=== PATIENT | male | born 1950 | race Asian ===

== ENCOUNTER 2016-11-25 18:14 | Inpatient (IN) | payer MEDICARE, OTHER ==
[~2016-11-25] VITALS: Ht 157.5 cm; Wt 58.2 kg
[~2016-11-25 18:14] MED LIST: NAPR-260 PO; TRAM50TA2 PO
[2016-11-25] MEDS ORDERED: ASPIRIN 81 MG TAB PO STA (21:08)
[2016-11-25] MEDS ORDERED: FUROSEMIDE 40 MG INJ IV STA (21:08)
[2016-11-25] MEDS ORDERED: METO-429 PO (21:43)
[2016-11-25] MEDS ORDERED: SODI650T PO (21:46)
[2016-11-25] MEDS ORDERED: TERA2CAP3 PO (21:47)
[2016-11-25] MEDS ORDERED: CLON-379 PO (21:47)
[2016-11-25] MEDS ORDERED: ATOR20TA38 PO (21:48)
[2016-11-25] MEDS ORDERED: NIFE60TA7 PO (21:48)
[2016-11-25] MEDS ORDERED: FOLI-49 PO (21:49)
--- NOTE | 2016-11-25 21:58 | RADRPT ---
PROCEDURE: XR Chest. CLINICAL INDICATION: Chest pain TECHNIQUE: Single frontal view of the chest was obtained COMPARISON: None FINDINGS: The heart is enlarged. The thoracic aorta is calcified. There is no pneumothorax. There is a right lower lobe infiltrate and right pleural effusion. There is a small left pleural eff usion. RPTAT: AA IMPRESSION: Mild cardiomegaly. Calcified aorta consistent with atherosclerotic disease. Right lower lobe infiltrate and small to moderate right pleural effusion. Small left pleural effusion with left lower lobe atelectasis. .David George MD, MD Date Time Electronically viewed and signed by .David George MD, on 11/25/2016 21:58 .S/
[2016-11-25] MEDS ORDERED: ACETAMINOPHEN 325 MG TAB PO PRN (22:00)
[2016-11-25] MEDS ORDERED: ONDANSETRON 4 MG INJ IV PRN (22:00)
[2016-11-25 22:12] LABS: WHITE BLOOD COUNT 5.2 10^3/ul (4.8-10.8)
[2016-11-25 22:13] LABS: BASOPHILS % 0.4 % (0.0-2.0); EOSINOPHILS # 0.6 10^3/ul (0.0-0.5); EOSINOPHILS % 11.3 % (0.0-7.0); HEMATOCRIT 23.8 % (42.0-52.0); HEMOGLOBIN 7.8 g/dl (14.0-18.0); LYMPHOCYTES % 18.8 % (15.0-51.0); MEAN CORPUSCULAR HEMOGLOBIN 31.5 pg (29.0-33.0); MEAN CORPUSCULAR HGB CONC 32.8 g/dl (32.0-37.0); MEAN PLATELET VOLUME 11.5 fl (7.4-10.4); MONOCYTE # 0.4 10^3/ul (0.3-0.9); NEUTROPHIL # 3.2 10^3/ul (1.6-7.5); NEUTROPHILS % 61.3 % (39.0-77.0); PLATELET COUNT 239 10^3/UL (140-415); RED BLOOD COUNT 2.48 10^6/ul (4.70-6.10); RED CELL DISTRIBUTION WIDTH 13.2 % (11.5-14.5)
[2016-11-25 22:45] LABS: TROPONIN-I < 0.012 ng/ml (0.00-0.12)
[2016-11-25 23:00] VITALS: TEMP 98
[2016-11-25 23:25] LABS: ANION GAP 14 (8-16); BLOOD UREA NITROGEN 60 mg/dl (7-20); CALCIUM 8.1 mg/dl (8.4-10.2); CARBON DIOXIDE 17 mmol/L (21-31); CHLORIDE 118 mmol/L (97-110); CREATININE 4.84 mg/dl (0.61-1.24); GLUCOSE 117 mg/dl (70-220); POTASSIUM 5.6 mmol/L (3.5-5.1); SODIUM 143 mmol/L (135-144)
--- NOTE | 2016-11-25 23:33 | ERA ---
ER Documentation Chief Complaint Date/Time DATE: 11/25/16 TIME: 23:30 Chief Complaint bilateral leg swelling x 1 month and bilateral testicle x 1 week HPI Patient is a 66-year-old male who presents with shortness of breath. The patient has bilateral leg swelling as well. The swelling goes all the way up to his testicles and he feels like his testicles are swollen as well. He does have a primary doctor at [facility]. He has had no treatment as of yet. Upon review of old medical records the patient one previous visit to the ER. ROS All systems reviewed and are negative except as per history of present illness. Medications Home Meds Reported Medications Folic Acid* (Folic Acid*) 1 Mg Tablet, 1 MG PO DAILY, TAB 11/25/16 Nifedipine* (Nifedipine ER*) 60 Mg Tablet.sa, 60 MG PO BID, TAB.SA 11/25/16 Atorvastatin Calcium* (Atorvastatin Calcium*) 20 Mg Tablet, 20 MG PO QHS, #30 TAB 11/25/16 Terazosin Hcl* (Terazosin Hcl*) 2 Mg Capsule, 2 MG PO HS, CAP 11/25/16 Clonidine Hcl* (Clonidine Hcl*) 0.1 Mg Tab, 0.1 MG PO BID Y for HTN, TAB 11/25/16 Sodium Bicarbonate (Antacid) 650 Mg Tablet, 325 MG PO BID, TAB 11/25/16 Metoprolol Tartrate* (Lopressor*) 50 Mg Tab, 50 MG PO BID, #60 TAB 11/25/16 Discontinued Scripts Tramadol HCl (Tramadol HCl) 50 Mg Tablet, 50 MG PO Q4 Y for PAIN, #15 TAB Prov:SEVERO STEWART PA-C 02/12/16 Naproxen* (Naprosyn*) 500 Mg Tablet, 500 MG PO BID Y for PAIN AND/OR INFLAMMATION, #30 TAB Prov:SEVERO STEWART PA-C 02/12/16 Allergies Allergies: Coded Allergies: No Known Allergy (Unverified , 11/25/16) PMhx/Soc History of Surgery: Yes (R Eye Cataract Surg) Anesthesia Reaction: No Hx Neurological Disorder: Yes (CVA) Hx Respiratory Disorders: No Hx Cardiac Disorders: Yes (HTN) Hx Psychiatric Problems: No Hx Miscellaneous Medical Probl: Yes (DDM,Dyslipidemia) Hx Alcohol Use: Yes (Social) Hx Substance Use: No Hx Tobacco Use: No Smoking Status: Never smoker FmHx Family History: No diabetes Physical Exam Vitals Vital Signs Date Time Temp Pulse Resp B/P Pulse Ox O2 Delivery O2 Flow Rate FiO2 11/25/16 23:00 98.0 59 12 143/59 98 Room Air 11/25/16 18:18 98.7 62 18 154/70 97 Physical Exam Const: Moderate distress Head: Atraumatic Eyes: Normal Conjunctiva ENT: Normal External Ears, Nose and Mouth. Neck: Full range of motion..~ No meningismus. Resp: Clear to auscultation bilaterally Cardio: Regular rate and rhythm, no murmurs Abd: Soft, non tender, non distended. Normal bowel sounds Skin: No petechiae or rashes Back: No midline or flank tenderness Ext: 4+ pitting edema bilaterally with scrotal swelling consistent with anasarca Neur: Awake and alert Psych: Normal Mood and Affect Result Diagram: 11/25/160 11/25/165 Results 24 hrs Laboratory Tests Test 11/25/16 22:00 11/25/16 22:35 White Blood Count 5.210^3/ul Red Blood Count 2.4810^6/ul Hemoglobin 7.8g/dl Hematocrit 23.8% Mean Corpuscular Volume 96.0fl Mean Corpuscular Hemoglobin 31.5pg Mean Corpuscular Hemoglobin Concent 32.8g/dl Red Cell Distribution Width 13.2% Platelet Count 73956^3/UL Mean Platelet Volume 11.5fl Neutrophils % 61.3% Lymphocytes % 18.8% Monocytes % 8.0% Eosinophils % 11.3% Basophils % 0.4% Nucleated Red Blood Cells % 0.0/100WBC Neutrophils # 3.210^3/ul Lymphocytes # 1.010^3/ul Monocytes # 0.410^3/ul Eosinophils # 0.610^3/ul Basophils # 0.010^3/ul Nucleated Red Blood Cells # 0.010^3/ul Sodium Level 143mmol/L Potassium Level 5.6mmol/L Chloride Level 118mmol/L Carbon Dioxide Level 17mmol/L Anion Gap 14 Blood Urea Nitrogen 60mg/dl Creatinine 4.84mg/dl Glucose Level 117mg/dl Calcium Level 8.1mg/dl Troponin I < 0.012ng/ml Current Medications Medications (Trade) Dose Ordered Sig/Yuniel Route PRN Reason Start Time Stop Time Status Last Admin Dose Admin Aspirin (Aspirin) 162 mg ONCE STAT PO 11/25/16 21:08 11/25/16 21:09 DC 11/25/16 22:09 Furosemide (Lasix) 40 mg ONCE STAT IV 11/25/16 21:08 11/25/16 21:09 DC 11/25/16 22:09 Ondansetron HCl (Zofran Inj) 4 mg ER BRIDGE PRN IV NAUSEA AND/OR VOMITING 11/25/16 22:00 11/26/16 21:59 Acetaminophen (Tylenol Tab) 650 mg ER BRIDGE PRN PO MILD PAIN/FEVER 11/25/16 22:00 11/26/16 21:59 Procedures/MDM Chest X-ray 1V Interpreted by me: Soft Tissue: No acute abnormalities Bones: No acute abnormalities Mediastinum/Cardiac Silhouette/Lungs: Pulmonary edema EKG read by me: Rate/Rhythm: Regular rate and rhythm at a normal rate Intervals: Normal Impression: No evidence of ischemia or arrhythmia Patient is a 66-year-old male presents with acute fluid overload. He was found to have acute renal failure as well and acute hyperkalemia. I believe the patient has acute CHF and the patient was given aspirin and Lasix. The patient will be admitted to the care of Dr. Shahid from the panel team for further treatment. He will be admitted to a telemetry bed. He may require dialysis while admitted if his creatinine does not improve and his potassium continues to rise. EKG shows no sign of hyperkalemia at this time. Critical Care: Time: 35 minutes excluding all billable procedures. Treatments/Evaluations: Close monitoring and treatment of unstable vital signs, cardiorespiratory, and neurologic status, while maintaining tight balance of fluid, respiratory, and cardiac interventions. Departure Diagnosis: Primary Impression: Hyperkalemia Additional Impressions: Swelling Anasarca Acute renal failure Acute CHF Condition: TORIBIO Etienne MD Nov 25, 2016 23:33
[2016-11-25 23:41] VITALS: PULSE 57
[2016-11-26] VITALS (23 sets, daily range): BP systolic 120–231; BP diastolic 50–93; PULSE 54–74; RESP 16–20; Ht 157.5 cm; Wt 58.2 kg
[2016-11-26] MEDS ORDERED: GLUCOSE GEL 15 GRAM TUBE BUCCAL PRN (00:30)
[2016-11-26] MEDS ORDERED: GLUCAGON 1 MG INJ IM PRN (00:30)
[2016-11-26] MEDS ORDERED: ACETAMINOPHEN 325 MG TAB PO PRN (00:30)
[2016-11-26] MEDS ORDERED: ONDANSETRON 4 MG INJ IV PRN (00:30)
[2016-11-26] MEDS ORDERED: DEXTROSE 50% 50 ML SYRINGE IV PRN ×2 (00:30)
[2016-11-26] MEDS ORDERED: GLUCOSE GEL 15 GRAM TUBE PO PRN ×2 (00:30)
[2016-11-26] MEDS: SOD CHLORIDE 0.9% 1,000 ML IV SCH ×2 (00:56→10:30)
[2016-11-26] MEDS ORDERED: NA POLYST SULFON 15 GM/60 ML BTL PO ONE (01:00)
[2016-11-26] MEDS: ACCU-CHEK XX SCH (01:58)
[2016-11-26 03:45] LABS: BASOPHILS % 0.5 % (0.0-2.0); EOSINOPHILS # 0.7 10^3/ul (0.0-0.5); EOSINOPHILS % 12.9 % (0.0-7.0); HEMOGLOBIN 8.1 g/dl (14.0-18.0); LYMPHOCYTES # 1.3 10^3/ul (0.8-2.9); LYMPHOCYTES % 23.8 % (15.0-51.0); MEAN CORPUSCULAR HEMOGLOBIN 31.3 pg (29.0-33.0); MEAN CORPUSCULAR HGB CONC 32.4 g/dl (32.0-37.0); MEAN CORPUSCULAR VOLUME 96.5 fl (82.0-101.0); MEAN PLATELET VOLUME 11.4 fl (7.4-10.4); MONOCYTE # 0.5 10^3/ul (0.3-0.9); MONOCYTES % 8.4 % (0.0-11.0); NEUTROPHILS % 54.2 % (39.0-77.0); PLATELET COUNT 249 10^3/UL (140-415); RED BLOOD COUNT 2.59 10^6/ul (4.70-6.10); RED CELL DISTRIBUTION WIDTH 13.2 % (11.5-14.5); WHITE BLOOD COUNT 5.6 10^3/ul (4.8-10.8)
[2016-11-26 04:06] LABS: CREATINE KINASE 124 IU/L (23-200)
[2016-11-26 04:08] LABS: ALBUMIN 3.9 g/dl (3.3-4.9); ALBUMIN/GLOBULIN RATIO 0.95; BILIRUBIN,INDIRECT 0.2 mg/dl (0-1.1); BILIRUBIN,TOTAL 0.2 mg/dl (0.2-1.3); CALCIUM 8.6 mg/dl (8.4-10.2); CREATININE 4.93 mg/dl (0.61-1.24); MAGNESIUM 2.5 mg/dl (1.7-2.5); PHOSPHORUS 5.1 mg/dl (2.5-4.9); POTASSIUM 5.1 mmol/L (3.5-5.1)
[2016-11-26 04:52] LABS: CK-MB 2.08 ng/ml (0.0-2.4); TROPONIN-I < 0.012 ng/ml (0.00-0.12)
[2016-11-26] MEDS: hydrALAzine 20 MG INJ IV PRN ×3 (05:43→18:31)
[2016-11-26] MEDS: ALBUMIN HUMAN 25% 100 ML IVPB SCH ×2 (06:41→14:19)
[2016-11-26] MEDS: INSULIN ASPART [NOVOLOG] 3 ML PEN SC SCH ×4 (08:00→20:46)
[2016-11-26] MEDS: NIFEdipine (XL) 60 MG TAB PO SCH ×2 (09:13→20:36)
[2016-11-26] MEDS: METOPROLOL 50 MG TAB PO SCH ×2 (09:13→20:37)
[2016-11-26] MEDS ORDERED: LABETALOL HCL 20MG INJ IV ONE (09:30)
[2016-11-26] MEDS: ASPIRIN (EC) 81 MG TAB PO SCH (09:43)
[2016-11-26] MEDS: NA BICARBONATE 650 MG TAB PO SCH ×2 (09:43→20:36)
[2016-11-26] MEDS: FOLIC ACID 1 MG TAB PO SCH (09:43)
--- NOTE | 2016-11-26 09:44 | HP ---
Date/Time of Note Date/Time of Note DATE: 11/26/16 TIME: 09:38 Assessment/Plan VTE Prophylaxis VTE Prophylaxis Intervention: heparin Lines/Catheters IV C[facility] Type [facility]from [facility] Peripheral IV Urinary Cath still in place: Yes Assessment/Plan Assessment/Plan ASSESSMENT 66-year-old male with a history of CVA, hypertension, diabetes presents with anasarca secondary to renal insufficiency PLAN Patient presented to his secondary to renal failure. Will obtain renal ultrasound and a urine electrolytes. Nephrology consult has already been placed Place a Rosario Order a 2D echo will give albumin Continue terazosin Monitor urine output Check A1c, fasting lipid Insulin while in house for management of diabetes HPI/ROS Admit Date/Time Admit Date/Time Nov 25, 2016 at 22:01 Hx of Present Illness This is a 66-year-old male with a history of CVA, hypertension, diabetes and BPH who presented to the emergency department complaining of shortness of breath and progressively worsening bilateral lower extremity swelling in the testicular swelling. Symptoms been going on for a few weeks and have been getting worse. He also reported decreased urine output. When he presented to the ER his potassium was 5.6, creatinine 4.8, BUN 60, hemoglobin 7.8. Chest x-ray showed pleural effusion and right-sided infiltrate. PMH/Family/Social Social History Smoking Status: Former smoker Exam/Review of Systems Vital Signs Vitals Vital Signs Date Time Temp Pulse Resp B/P Pulse Ox O2 Delivery O2 Flow Rate FiO2 11/26/16 08:10 64 11/26/16 07:51 98.1 20 182/66 98 11/26/16 01:05 Room Air Intake and Output 11/25/16 11/25/16 11/26/16 15:00 23:00 07:00 Intake Total 580 ml Output Total 750 ml Balance -170 ml Exam Constitutional: alert Head: atraumatic, normocephalic Eyes: EOMI, PERRL Respiratory: diminished breath sounds Cardiovascular: regular rate and rhythm Gastrointestinal: soft Extremities: edema Labs Result Diagram: 11/26/1631611/26/16316 Medications Medications Current Medications Sodium Chloride (NS) 1,000 ml @ 100 mls/hr Q10H IV Last administered on t 00:56; Admin Dose 100 MLS/HR; Start 11/26/16 at 00:30 Ondansetron HCl (Zofran Inj) 4 mg Q6H PRN IV NAUSEA AND/OR VOMITING; Start at 00:30 Acetaminophen (Tylenol Tab) 650 mg Q4H PRN PO PAIN AND OR ELEVATED TEMP; Start 11/26/16 at 00:30 Hydralazine HCl (Apresoline) 10 mg Q6H PRN IV systolic BP >160 Last administered on 11/26/16 05:43; Admin Dose 10 MG; Start 11/26/16 at 00:30 Diagnostic Test (Pha) (Accu-Chek) 1 ea 02 XX ; Start 11/26/16 at 02:00 Miscellaneous Information 1 ea NOTE XX ; Start 11/26/16 at 00:30 Glucose (Glutose) 15 gm Q15M PRN PO DECREASED GLUCOSE; Start 11/26/16 at 00:30 Glucose (Glutose) 22.5 gm Q15M PRN PO DECREASED GLUCOSE; Start 11/26/16 at 00: 30 Dextrose (D50w Syringe) 25 ml Q15M PRN IV DECREASED GLUCOSE; Start 11/26/16 at 00:30 Dextrose (D50w Syringe) 50 ml Q15M PRN IV DECREASED GLUCOSE; Start 11/26/16 at 00:30 Glucagon (Glucagen) 1 mg Q15M PRN IM DECREASED GLUCOSE; Start 11/26/16 at 00:30 Glucose (Glutose) 15 gm Q15M PRN BUCCAL DECREASED GLUCOSE; Start 11/26/16 at 00 :30 Atorvastatin Calcium (Lipitor) 20 mg QHS PO ; Start 11/26/16 at 21:00 Clonidine (Catapres) 0.1 mg BID PO Last administered on 11/26/16 06:42; Admin Dose 0.1 MG; Start 11/26/16 at 06:36 Folic Acid (Folic Acid) 1 mg DAILY PO ; Start 11/26/16 at 09:00 Metoprolol Tartrate (Lopressor) 50 mg BID PO Last administered on 11/26/16 09: 13; Admin Dose 50 MG; Start 11/26/16 at 09:00 Nifedipine (Procardia Xl) 60 mg BID PO Last administered on 11/26/16 09:13; Admin Dose 60 MG; Start 11/26/16 at 09:00 Sodium Bicarbonate (Sodium Bicarbonate Tab) 325 mg BID PO ; Start 11/26/16 at 09 :00 Terazosin HCl (Hytrin) 2 mg HS PO ; Start 11/26/16 at 21:00 Aspirin 81 mg 81 mg DAILY PO ; Start 11/26/16 at 09:00 Albumin Human (Albumin Human 25%) 100 ml @ 100 mls/hr Q8H IVPB Last administered on 11/26/16t 06:41; Admin Dose 100 MLS/HR; Start 11/26/16 at 06:30 ; Stop 11/26/16 at 23:29 TONO MACHADO MD Nov 26, 2016 09:44
--- NOTE | 2016-11-26 09:48 | RADRPT ---
PROCEDURE: Retroperitoneal US. CLINICAL INDICATION: Renal insufficiency TECHNIQUE: Multiple sonographic images of the kidneys and retroperitoneum were obtained. The imag es were reviewed on a PACS workstation. COMPARISON: No prior studies are available for comparison. FINDINGS: The kidneys are normal in size, contour, cortical thickness. There is increased echogenicity of the kidneys. There is a 9 mm simple cyst in the right kidney. The right kidney measures 10.7 cm. The left kidney measures 11.0 cm. No kidney stones are visualized. There is no evidence for hydronephrosis. The urinary bladder is decompressed by a Rosario catheter and not well seen. RPTAT: AA IMPRESSION: Echogenic kidneys, consistent with medical renal disease. .David George MD, MD Date Time Electronically viewed and signed by .David George MD, MD on 11/26/2016 09:48 .S/
[2016-11-26 10:50] LABS: CREATINE KINASE 98 IU/L (23-200)
[2016-11-26 11:00] LABS: TROPONIN-I < 0.012 ng/ml (0.00-0.12)
[2016-11-26 11:01] LABS: CK-MB 1.58 ng/ml (0.0-2.4)
[2016-11-26 12:57] LABS: AADO2 Arterial 25.4 mmHg (7.0-24.0); Allen Test ACCEPTAB; Arterial Base Excess -6.2 mmol/L (-3.0-3); Arterial COHb 0.2 % (0.0-3.0); Arterial Fraction of Oxyhgb 96.1 % (93.0-99.0); Arterial HCO3 17.1 mmol/L (22.0-26.0); Arterial MetHb 0.3 % (0.0-1.5); Arterial Total Hemglobin 9.9 g/dl (12.0-18.0); MODE ROOM AIR
[2016-11-26] MEDS ORDERED: NIFEdipine (XL) 30 MG TAB PO ONE (13:00)
[2016-11-26] MEDS ORDERED: SOD CHLORIDE 0.45% 1,000 ML IV SCH (13:00)
--- NOTE | 2016-11-26 13:57 | PN ---
Date/Time of Note Date/Time of Note DATE: 11/26/16 TIME: 13:48 Assessment/Plan VTE Prophylaxis VTE Prophylaxis Intervention: heparin Lines/Catheters IV Catheter Type (from Nrsg): Peripheral IV Urinary Cath still in place: Yes Reason Cath still needed: other (indicate) Assessment/Plan Assessment/Plan 1. Anasarca with peripheral edema and pleural effusion due to excessive fluid intake because of clonidine-induced dry mouth, limit water intake, lasix 2. Hypertension, on clonidine/procardia, add lasix 3. Renal failure, acute on CKD, follow up with nephrology 4. DM, 5. CVA per history 6. DVT prophylaxis: heparin Subjective 24 Hr Interval Summary Free Text/Dictation leg swelling and shortness of breath Exam/Review of Systems Vital Signs Vitals Vital Signs Date Time Temp Pulse Resp B/P Pulse Ox O2 Delivery O2 Flow Rate FiO2 11/26/16 13:15 69 231/93 11/26/16 11:45 98.7 18 100 11/26/16 01:05 Room Air Intake and Output 11/25/16 11/25/16 11/26/16 15:00 23:00 07:00 Intake Total 580 ml Output Total 750 ml Balance -170 ml Exam Constitutional: alert, oriented, well developed Psych: nl mood/affect, no complaints Head: atraumatic, normocephalic Eyes: EOMI, PERRL, nl conjunctiva, nl lids, nl sclera ENMT: nl external ears & nose, nl lips & teeth, nl nasal mucosa & septum Neck: non-tender, supple Respiratory: clear to auscultation, normal air movement, No congested cough, No crackles/rales, No diminished breath sounds, No intercostal retraction, No labored breathing, No other, No respirations, No tactile fremitus, No wheezing Cardiovascular: nl pulses, regular rate and rhythm, No S3, No S4, No bruits, No diastolic murmur, No edema, No gallop, No irregular rhythm, No jugular venous distention (JVD), No murmurs/extra sounds, No other, No rub, No systolic murmur Gastrointestinal: nl liver, spleen, non-tender, soft, No ascites, No bowel sounds, No distended, No firm, No hepatomegaly, No mass , No other, No rebound or guarding, No splenomegaly, No surgical scars, No tender Musculoskeletal: nl extremities to inspection Extremities: edema, normal pulses Neurological: PRECISION [employer]ER II-XII intact, nl mental status, nl speech, nl strength Results Result Diagram: 11/26/1631611/26/16316 Results 24 hrs Laboratory Tests Test 11/25/16 22:00 11/25/16 22:35 11/26/16 00:08 11/26/16 03:17 White Blood Count 5.2 5.6 Red Blood Count 2.48 L 2.59 L Hemoglobin 7.8 L 8.1 L Hematocrit 23.8 L 25.0 L Mean Corpuscular Volume 96.0 96.5 Mean Corpuscular Hemoglobin 31.5 31.3 Mean Corpuscular Hemoglobin Concent 32.8 32.4 Red Cell Distribution Width 13.2 13.2 Platelet Count 239 249 Mean Platelet Volume 11.5 H 11.4 H Neutrophils % 61.3 54.2 Lymphocytes % 18.8 23.8 Monocytes % 8.0 8.4 Eosinophils % 11.3 H 12.9 H Basophils % 0.4 0.5 Nucleated Red Blood Cells % 0.0 0.0 Neutrophils # 3.2 3.0 Lymphocytes # 1.0 1.3 Monocytes # 0.4 0.5 Eosinophils # 0.6 H 0.7 H Basophils # 0.0 0.0 Nucleated Red Blood Cells # 0.0 0.0 Sodium Level 143 147 H Potassium Level 5.6 H 5.1 Chloride Level 118 H 118 H Carbon Dioxide Level 17 L 18 L Anion Gap 14 16 Blood Urea Nitrogen 60 H 59 H Creatinine 4.84 H 4.93 H Glucose Level 117 200 Calcium Level 8.1 L 8.6 Troponin I < 0.012 < 0.012 Bedside Glucose 121 Hemoglobin A1c 5.5 Phosphorus Level 5.1 H Magnesium Level 2.5 Total Bilirubin 0.2 Direct Bilirubin 0.00 Indirect Bilirubin 0.2 Aspartate Amino Transf (AST/SGOT) 48 H Alanine Aminotransferase (ALT/SGPT) 46 Alkaline Phosphatase 144 H Creatine Kinase 124 Creatine Kinase Index 1.7 Creatinine Kinase MB (Mass) 2.08 Total Protein 8.0 Albumin 3.9 Globulin 4.10 H Albumin/Globulin Ratio 0.95 Test 11/26/16 08:34 11/26/16 09:49 11/26/16 11:58 11/26/16 12:34 Bedside Glucose 131 117 Creatine Kinase 98 Creatine Kinase Index 1.6 Creatinine Kinase MB (Mass) 1.58 Troponin I < 0.012 Blood Gas Specimen Source Blood arterial Arterial Blood Date Drawn 11/26/2016 12:40:12 PM Arterial Blood pH (Temp corrected) 7.425 Arterial Blood pCO2 (Temp correct) 26.6 L Arterial Blood pO2 (Temp corrected) 92.5 Arterial Blood HCO3 17.1 L Arterial Blood Base Excess -6.2 L Arterial Blood Oxygen Saturation 96.6 Ramesh Test ACCEPTAB Arterial Blood Gas Puncture Site Right Radial Arterial Blood Carboxyhemoglobin 0.2 Arterial Blood Methemoglobin 0.3 Blood Gas A-a O2 Differential 25.4 H Oxyhemoglobin Percent 96.1 Total Hemoglobin 9.9 L Blood Gas Temperature 37.0 Blood Gas Modality ROOM AIR FiO2 21.0 Blood Gas Notified Whom JLD Blood Gas Notified Time 11/26/2016 12:57:47 PM Medications Medications Current Medications Ondansetron HCl (Zofran Inj) 4 mg Q6H PRN IV NAUSEA AND/OR VOMITING; Start at 00:30 Acetaminophen (Tylenol Tab) 650 mg Q4H PRN PO PAIN AND OR ELEVATED TEMP; Start 11/26/16 at 00:30 Hydralazine HCl (Apresoline) 10 mg Q6H PRN IV systolic BP >160 Last administered on 11/26/16t 12:03; Admin Dose 10 MG; Start 11/26/16 at 00:30 Diagnostic Test (Pha) (Accu-Chek) 1 ea 02 XX ; Start 11/26/16 at 02:00 Miscellaneous Information 1 ea NOTE XX ; Start 11/26/16 at 00:30 Glucose (Glutose) 15 gm Q15M PRN PO DECREASED GLUCOSE; Start 11/26/16 at 00:30 Glucose (Glutose) 22.5 gm Q15M PRN PO DECREASED GLUCOSE; Start 11/26/16 at 00: 30 Dextrose (D50w Syringe) 25 ml Q15M PRN IV DECREASED GLUCOSE; Start 11/26/16 at 00:30 Dextrose (D50w Syringe) 50 ml Q15M PRN IV DECREASED GLUCOSE; Start 11/26/16 at 00:30 Glucagon (Glucagen) 1 mg Q15M PRN IM DECREASED GLUCOSE; Start 11/26/16 at 00:30 Glucose (Glutose) 15 gm Q15M PRN BUCCAL DECREASED GLUCOSE; Start 11/26/16 at 00 :30 Atorvastatin Calcium (Lipitor) 20 mg QHS PO ; Start 11/26/16 at 21:00 Clonidine (Catapres) 0.1 mg BID PO Last administered on 11/26/16 06:42; Admin Dose 0.1 MG; Start 11/26/16 at 06:36 Folic Acid (Folic Acid) 1 mg DAILY PO Last administered on 11/26/16 09:43; Admin Dose 1 MG; Start 11/26/16 at 09:00 Metoprolol Tartrate (Lopressor) 50 mg BID PO Last administered on 11/26/16 09: 13; Admin Dose 50 MG; Start 11/26/16 at 09:00 Nifedipine (Procardia Xl) 60 mg BID PO Last administered on 11/26/16 09:13; Admin Dose 60 MG; Start 11/26/16 at 09:00 Sodium Bicarbonate (Sodium Bicarbonate Tab) 325 mg BID PO Last administered on 11/26/16 09:43; Admin Dose 325 MG; Start 11/26/16 at 09:00 Terazosin HCl (Hytrin) 2 mg HS PO ; Start 11/26/16 at 21:00 Aspirin 81 mg 81 mg DAILY PO Last administered on 11/26/16 09:43; Admin Dose 81 MG; Start 11/26/16 at 09:00 Albumin Human 100 ml @ 100 mls/hr Q8H IVPB Last administered on 11/26/16 06: 41; Admin Dose 100 MLS/HR; Start 11/26/16 at 06:30; Stop 11/26/16 at 23:29 Sodium Chloride (1/2 NS) 1,000 ml @ 40 mls/hr Q24H IV Last administered on 13:09; Admin Dose 40 MLS/HR; Start 11/26/16 at 13:00 XIANG WAGNER MD Nov 26, 2016 13:57
[2016-11-26] MEDS: HEPARIN 5,000 UNIT/0.5 ML VIAL SC SCH ×2 (14:33→20:45)
--- NOTE | 2016-11-26 14:53 | RADRPT ---
Echocardiogram Report Patient Name: PARDEEP TRIVEDI Gender: Male Date: 1950 Study Date: 26-Nov-2016 Orthopedic Designer: Bhavani Lyles [facility] Location: 5550 Ref. Physician: TONO MACHADO Quality: Good Procedures: Transthoracic echocardiogram with complete 2D, M-Mode, and doppler examination. Indications: Congestive Heart Failure. 2D/M Mode Doppler Measurement Value Normal Ranges Measurement Value Normal Ranges LVIDd 2D 5.0 3.5 - 5.6 cm AV Peak [place] 1.6 m/sec LVIDs 2D 2.7 2.1 - 4.1 cm AV Peak PG 10.5 mmHg LVPWd 2D 1.2 0.6 - 1.1 cm LVOT Peak [place] 1.1 m/sec IVSd 2D 1.1 0.6 - 1.1 cm LVOT Peak PG 4.6 mmHg AoR Diam 2D 2.9 2.0 - 3.7 cm MV E Peak [place] 1.3 m/sec EDV 2D 116.4 cm3 MV A Peak [place] 0.7 m/sec ESV 2D 19.2 cm3 MV E/A 1.7 LA Dimen 2D 3.8 2.3 - 4.0 cm MV Decel Time 156 msec MV Decel [place] 8 MV E/A 1.7 TR Peak [place] 3.4 m/sec TR Peak PG 45.9 mmHg RVSP 49.0 mmHg Findings Left Ventricle: Normal left ventricular systolic function. Normal left ventricular cavity size. Mild concentric left ventricular hypertrophy. Ejection fraction is visually estimated at 60 %. Right Ventricle: Normal right ventricular size. Normal right ventricular systolic function. Left Atrium: The left atrium is normal in size. Right Atrium: The right atrium is normal in size. Mitral Valve: Mitral valve leaflets appear mildly thickened. Mild mitral annular calcification. Mild mitral valve regurgitation. Aortic Valve: Normal appearance of the aortic valve. No significant aortic stenosis or insufficiency. Tricuspid Valve: Normal appearance of the tricuspid valve. Estimated peak PA systolic pressure 49 mmHg. There is mild tricuspid regurgitation. Pulmonic Valve: Normal pulmonic valve appearance. There is trace pulmonic regurgitation. Pericardium: Normal pericardium with no significant pericardial effusion. Aorta: Normal aortic root. IVC: Normal size and normal respiratory collapse consistent with normal right atrial pressure. Conclusions 1.Normal left ventricular systolic function. Normal left ventricular cavity size. Mild concentric left ventricular hypertrophy. Ejection fraction is visually estimated at 60 %. 2.Normal right ventricular size. Normal right ventricular systolic function. 3.The left atrium is normal in size. 4.The right atrium is normal in size. 5.Mild mitral valve regurgitation. 6.No significant aortic stenosis or insufficiency. 7.Estimated peak PA systolic pressure 49 mmHg. There is mild tricuspid regurgitation. 8.Normal pericardium with no significant pericardial effusion. Electronically Signed By: Srikanth Mkcnight 26-Nov-2016 14:52:56 -0700 Patient Name: PARDEEP TRIVEDI Study Date: 26-Nov-2016 [id number]
[2016-11-26] MEDS: FUROSEMIDE 20 MG INJ IV SCH (17:22)
[2016-11-26 17:49] LABS: ADD UMIC YES; UR ASCORBIC ACID NEGATIVE (NEGATIVE); UR BILIRUBIN (Dip) NEGATIVE (NEGATIVE); UR BLOOD (Dip) 2+ mg/dL (NEGATIVE); UR CLARITY CLEAR (CLEAR); UR COLOR STRAW (YELLOW); UR GLUCOSE (Dip) NEGATIVE (NEGATIVE); UR KETONES (Dip) NEGATIVE (NEGATIVE); UR LEUKOCYTE ESTERASE (Dip) NEGATIVE Leu/ul (NEGATIVE); UR NITRITE (Dip) NEGATIVE (NEGATIVE); UR RBC 24 /HPF (0-5); UR SPECIFIC GRAVITY (Dip) 1.009 (1.003-1.030); UR TOTAL PROTEIN (Dip) 2+ mg/dl (NEGATIVE); UR UROBILINOGEN (Dip) NEGATIVE (NEGATIVE)
--- NOTE | 2016-11-26 20:10 | CONS ---
DATE OF ADMISSION: 11/25/2016 DATE OF CONSULTATION: 11/26/2016 REQUESTING PHYSICIAN: Jayme Shahid MD REASON FOR CONSULTATION: Chronic kidney disease. HISTORY OF PRESENT ILLNESS: This is a 66-year-old male with a past medical history of chronic kidney disease being followed at [facility], history of hypertension, history of CVA, diabetes, who presents to [facility] with diffuse anasarca. The patient stated over the last 1 week, he has had increased bilateral lower extremity swelling and increased shortness of breath without any clinical improvement. The patient came to the [facility] for evaluation. Upon arrival, the patient had laboratory data drawn, which showed a sodium 147, potassium 5.6, BUN 60, creatinine 4.84. The patient received IV fluids, medical management for his hypokalemia and admitted to Med/Surg. Following med/surg, the patient has been noticed to be hypertensive with systolic pressures greater than 180. In terms of the patient's renal history, patient states he has underlying chronic kidney disease. Does not know his baseline renal function, but believes it to be around 30 percent. The patient states last time he saw a dielectric tester at [place] was 1 year ago and he has not had an appointment in 1 year's time. The patient otherwise denies any hemoptysis, hematemesis, hematochezia. PAST MEDICAL HISTORY: As stated above, history of hypertension, history of diabetes, history of CVA. PAST SURGICAL HISTORY: None. ALLERGIES: NO KNOWN DRUG ALLERGIES. MEDICATIONS: Reviewed. FAMILY HISTORY: Noncontributory. SOCIAL HISTORY: Does not drink, smoke, or do drugs. REVIEW OF SYSTEMS: Fourteen point review of systems conducted. Pertinent positives in HPI, otherwise negative. OBJECTIVE DATA: VITAL SIGNS: Blood pressure is 190/95, respiration 18, temperature 98.6. HEENT: Head is normocephalic. NECK: Supple. HEART: Regular rate. LUNGS: Diminished breath sounds at the base. ABDOMEN: Soft, nontender to palpation, no guarding. EXTREMITIES: Negative for clubbing, cyanosis, has positive edema. The patient does have diffuse anasarca. DERMATOLOGIC: Clean. No rashes. MUSCULOSKELETAL: No joint effusion. NEUROLOGIC: No focal deficits. LABORATORY DATA: Sodium 147, potassium 5.1, chloride 119, bicarb 18, BUN 59, creatinine 4.93. Patient's ABG, pH 7.425, pCO2 of 26, pO2 of 92. Chest x-ray shows cardiomegaly with left pleural effusion, right moderate pleural effusion. Renal ultrasound shows echogenic kidneys consistent with medical renal disease. IMPRESSION AND PLAN: This is a 66-year-old male who presents with, 1. Nonoliguric acute kidney injury on top of chronic kidney disease, with possible progression of chronic kidney disease. The patient has underlying chronic kidney disease. The etiology of acute kidney injury may be secondary to acute tubular necrosis due to hypertensive urgency. The possibility of progressive chronic kidney disease towards end-stage renal disease is a consideration. The patient clinically has volume overload, hypertensive, with EGFR approximately 10 mL/minute. At this point, would recommend hemodialysis. Will plan for a dialysis catheter placement by Dr. Gudino. Once the catheter is placed, patient will be initiated on hemodialysis. The patient's renal ultrasound shows no evidence of obstruction and bilateral echogenic kidneys consistent with chronic kidney disease. Would otherwise continue treatment plan, supportive care, and renally dose all meds. 2. Anemia. Monitor hemoglobin and hematocrit levels. Will give Epogen as needed. 3. Mineral bone disorder. Monitor calcium and phosphorus levels. 4. Hypertensive urgency in part due to increased intravascular volume. Plan for ultrafiltration dialysis. Continue current medical management. Will discontinue IV fluids. 5. Hypernatremia. Encourage free water intake. 6. Metabolic acidosis with respiratory compensation. 7. Diabetes. Accu-Cheks and sliding scale. 8. Cerebrovascular accident. Continue medical management. Thank you, Dr. Shahid, for this interesting consult. It will be a pleasure to follow patient with you throughout the hospital course. Dictated By: Miguel A Dubois DO /sonia/cj /Document#: [id number]
[2016-11-26] MEDS: ATORVASTATIN 20 MG TAB PO SCH (20:37)
[2016-11-26] MEDS: TERAZOSIN 2 MG CAP PO SCH (20:38)
[2016-11-26] MEDS: INSULIN GLARGINE [LANtus] 3 ML PEN SC SCH (22:01)
[2016-11-27] VITALS (14 sets, daily range): BP systolic 110–163; BP diastolic 51–67; PULSE 54–67; RESP 16–20
[2016-11-27] MEDS: ACCU-CHEK XX SCH (02:54)
[2016-11-27] MEDS: FUROSEMIDE 20 MG INJ IV SCH (05:07)
[2016-11-27] MEDS: INSULIN ASPART [NOVOLOG] 3 ML PEN SC SCH ×4 (08:00→20:27)
[2016-11-27 08:36] LABS: ABNORMAL IP MESSAGE 1; BASOPHILS % 0.4 % (0.0-2.0); EOSINOPHILS # 0.2 10^3/ul (0.0-0.5); HEMATOCRIT 24.2 % (42.0-52.0); HEMOGLOBIN 7.9 g/dl (14.0-18.0); LYMPHOCYTES # 0.5 10^3/ul (0.8-2.9); LYMPHOCYTES % 10.4 % (15.0-51.0); MEAN CORPUSCULAR HEMOGLOBIN 31.5 pg (29.0-33.0); MEAN CORPUSCULAR HGB CONC 32.6 g/dl (32.0-37.0); MEAN CORPUSCULAR VOLUME 96.4 fl (82.0-101.0); MEAN PLATELET VOLUME 11.6 fl (7.4-10.4); MONOCYTE # 0.4 10^3/ul (0.3-0.9); MONOCYTES % 7.9 % (0.0-11.0); NEUTROPHILS % 77.1 % (39.0-77.0); PLATELET COUNT 213 10^3/UL (140-415); POSITIVE DIFF @See below; RED BLOOD COUNT 2.51 10^6/ul (4.70-6.10); RED CELL DISTRIBUTION WIDTH 13.5 % (11.5-14.5); WHITE BLOOD COUNT 5.2 10^3/ul (4.8-10.8)
[2016-11-27 08:58] LABS: CALCIUM 8.4 mg/dl (8.4-10.2); CREATININE 4.38 mg/dl (0.61-1.24); MAGNESIUM 2.2 mg/dl (1.7-2.5); PHOSPHORUS 4.7 mg/dl (2.5-4.9); POTASSIUM 4.4 mmol/L (3.5-5.1)
[2016-11-27] MEDS ORDERED: EPOETIN 10000 UNITS/1 ML INJ (ESRD) SC ONE (09:00)
--- NOTE | 2016-11-27 09:26 | PN ---
DATE: 11/27/2016 SUBJECTIVE DATA: The patient this morning is refusing hemodialysis. I discussed with the patient in detail the fact that he has advance renal failure, is volume overloaded and hypertensive, and would require dialysis. He is refusing. He is aware of risk of possible . The patient states he want to follow up with his doctor at [facility]. OBJECTIVE DATA: VITAL SIGNS: Blood pressure 130/60, respirations 17, pulse 75, temperature 97.7. HEENT: Head is normocephalic. NECK: Supple. HEART: Regular rate. LUNGS: Diminished breath sounds base. ABDOMEN: Soft, nontender to palpation. No rebound, guarding. EXTREMITIES: Negative for clubbing, cyanosis. Positive edema. Diffuse anasarca. DERMATOLOGY: Clean, no rashes. MUSCULOSKELETAL: No joint effusion. NEUROLOGIC: No change in exam. MEDICATIONS: Reviewed. LABORATORY DATA: Pending. ASSESSMENT AND PLAN: 1. Nonoliguric acute kidney injury on top of chronic kidney disease (CKD), possible progression of CKD towards end-stage renal disease. The patient appears to have progression of his underlying chronic kidney disease, given his long history of diabetes, hypertension. The patient was offered hemodialysis but is refusing. As stated above, risks and benefits were explained to the patient. The patient understood and is still refusing dialysis. He wishes to follow up with his primary library assistant at [facility]. Would otherwise continue current treatment plan, supportive care, renally dose all medication. 2. Anemia. Monitor hemoglobin and hematocrit levels. Will give Epogen as needed. 3. Mineral bone disorder. Monitor calcium and phosphorus levels. 4. Hypertensive urgency in part due to increased intravascular volume. Continue current blood pressure regimen. We will discontinue IV fluids. 5. Hyponatremia. Continue to encourage free water intake. 6. Metabolic acidosis with respiratory compensation. Continue to monitor. 7. Diabetes. Continue Accu-Cheks and insulin sliding scale. 8. History of cerebrovascular accident. Continue medical management. Dictated By: Miguel A Dubois DO /sonia/alex /Document#: [id number]
[2016-11-27] MEDS: ASPIRIN (EC) 81 MG TAB PO SCH (09:57)
[2016-11-27] MEDS: NA BICARBONATE 650 MG TAB PO SCH ×2 (09:57→20:25)
[2016-11-27] MEDS: FOLIC ACID 1 MG TAB PO SCH (09:57)
[2016-11-27] MEDS: NIFEdipine (XL) 60 MG TAB PO SCH ×2 (09:59→20:26)
[2016-11-27] MEDS: METOPROLOL 50 MG TAB PO SCH ×2 (09:59→20:26)
[2016-11-27] MEDS: HEPARIN 5,000 UNIT/0.5 ML VIAL SC SCH ×2 (10:00→20:22)
--- NOTE | 2016-11-27 14:09 | PN ---
Date/Time of Note Date/Time of Note DATE: 11/27/16 TIME: 14:07 Assessment/Plan VTE Prophylaxis VTE Prophylaxis Intervention: heparin Lines/Catheters IV Catheter Type (from Nrs): Saline Lock Urinary Cath still in place: Yes Reason Cath still needed: other (indicate) Assessment/Plan Assessment/Plan 1. Anasarca with peripheral edema and pleural effusion due to excessive fluid intake because of clonidine-induced dry mouth, limit water intake, lasix 2. Hypertension, on clonidine/procardia, change lasix to oral 3. Renal failure, acute on CKD, follow up with nephrology 4. DM, 5. CVA per history 6. DVT prophylaxis: heparin Subjective 24 Hr Interval Summary Free Text/Dictation no shortness of breath, less edema Exam/Review of Systems Vital Signs Vitals Vital Signs Date Time Temp Pulse Resp B/P Pulse Ox O2 Delivery O2 Flow Rate FiO2 11/27/16 13:38 67 127/55 11/27/16 11:40 98.1 20 97 11/26/16 01:05 Room Air Intake and Output 11/26/16 11/26/16 11/27/16 15:00 23:00 07:00 Intake Total 740 ml 980 ml 400 ml Output Total 325 ml 750 ml Balance 740 ml 655 ml -350 ml Exam Constitutional: oriented, well developed Psych: nl mood/affect, no complaints Head: atraumatic, normocephalic Eyes: EOMI, PERRL, nl conjunctiva, nl lids, nl sclera ENMT: nl external ears & nose, nl lips & teeth, nl nasal mucosa & septum Neck: non-tender, supple Respiratory: clear to auscultation, normal air movement, No congested cough, No crackles/rales, No diminished breath sounds, No intercostal retraction, No labored breathing, No other, No respirations, No tactile fremitus, No wheezing Cardiovascular: nl pulses, regular rate and rhythm, No S3, No S4, No bruits, No diastolic murmur, No edema, No gallop, No irregular rhythm, No jugular venous distention (JVD), No murmurs/extra sounds, No other, No rub, No systolic murmur Gastrointestinal: nl liver, spleen, non-tender, soft, No ascites, No bowel sounds, No distended, No firm, No hepatomegaly, No mass , No other, No rebound or guarding, No splenomegaly, No surgical scars, No tender Musculoskeletal: nl extremities to inspection Extremities: normal pulses, No calf tenderness, No clubbing, No cyanosis, No edema, No other, No palpable cord, No pitting pedal edema, No tenderness Neurological: [employer] II-XII intact, nl mental status, nl speech, nl strength Skin: nl turgor Results Result Diagram: 11/27/16 0748 11/27/16 0748 Results 24 hrs Laboratory Tests Test 11/26/16 17:20 11/26/16 20:44 11/26/16 21:56 11/27/16 01:51 Bedside Glucose 114 286 H 230 H 120 Test 11/27/16 07:48 11/27/16 08:35 11/27/16 12:21 White Blood Count 5.2 Red Blood Count 2.51 L Hemoglobin 7.9 L Hematocrit 24.2 L Mean Corpuscular Volume 96.4 Mean Corpuscular Hemoglobin 31.5 Mean Corpuscular Hemoglobin Concent 32.6 Red Cell Distribution Width 13.5 Platelet Count 213 Mean Platelet Volume 11.6 H Neutrophils % 77.1 H Lymphocytes % 10.4 L Monocytes % 7.9 Eosinophils % 4.0 Basophils % 0.4 Nucleated Red Blood Cells % 0.0 Neutrophils # 4.0 Lymphocytes # 0.5 L Monocytes # 0.4 Eosinophils # 0.2 Basophils # 0.0 Nucleated Red Blood Cells # 0.0 Sodium Level 145 H Potassium Level 4.4 Chloride Level 118 H Carbon Dioxide Level 21 Anion Gap 10 # Blood Urea Nitrogen 54 H Creatinine 4.38 H Glucose Level 65 #L Calcium Level 8.4 Phosphorus Level 4.7 Magnesium Level 2.2 Bedside Glucose 77 157 Medications Medications Current Medications Ondansetron HCl (Zofran Inj) 4 mg Q6H PRN IV NAUSEA AND/OR VOMITING; Start at 00:30 Acetaminophen (Tylenol Tab) 650 mg Q4H PRN PO PAIN AND OR ELEVATED TEMP; Start 11/26/16 at 00:30 Hydralazine HCl (Apresoline) 10 mg Q6H PRN IV systolic BP >160 Last administered on 11/26/16t 18:31; Admin Dose 10 MG; Start 11/26/16 at 00:30 Diagnostic Test (Pha) (Accu-Chek) 1 ea 02 XX Last administered on 11/27/16 02: 54; Admin Dose 1 EA; Start 11/26/16 at 02:00 Miscellaneous Information 1 ea NOTE XX ; Start 11/26/16 at 00:30 Glucose (Glutose) 15 gm Q15M PRN PO DECREASED GLUCOSE; Start 11/26/16 at 00:30 Glucose (Glutose) 22.5 gm Q15M PRN PO DECREASED GLUCOSE; Start 11/26/16 at 00: 30 Dextrose (D50w Syringe) 25 ml Q15M PRN IV DECREASED GLUCOSE; Start 11/26/16 at 00:30 Dextrose (D50w Syringe) 50 ml Q15M PRN IV DECREASED GLUCOSE; Start 11/26/16 at 00:30 Glucagon (Glucagen) 1 mg Q15M PRN IM DECREASED GLUCOSE; Start 11/26/16 at 00:30 Glucose (Glutose) 15 gm Q15M PRN BUCCAL DECREASED GLUCOSE; Start 11/26/16 at 00 :30 Atorvastatin Calcium (Lipitor) 20 mg QHS PO Last administered on 11/26/16 20: 37; Admin Dose 20 MG; Start 11/26/16 at 21:00 Folic Acid (Folic Acid) 1 mg DAILY PO Last administered on 11/27/16 09:57; Admin Dose 1 MG; Start 11/26/16 at 09:00 Metoprolol Tartrate (Lopressor) 50 mg BID PO Last administered on 11/27/16 09: 59; Admin Dose 50 MG; Start 11/26/16 at 09:00 Nifedipine (Procardia Xl) 60 mg BID PO Last administered on 11/27/16 09:59; Admin Dose 60 MG; Start 11/26/16 at 09:00 Sodium Bicarbonate (Sodium Bicarbonate Tab) 325 mg BID PO Last administered on 11/27/16 09:57; Admin Dose 325 MG; Start 11/26/16 at 09:00 Terazosin HCl (Hytrin) 2 mg HS PO Last administered on 11/26/16 20:38; Admin Dose 2 MG; Start 11/26/16 at 21:00 Aspirin (Halfprin) 81 mg DAILY PO Last administered on 11/27/16 09:57; Admin Dose 81 MG; Start 11/26/16 at 09:00 Clonidine (Catapres) 0.1 mg Q6H PRN PO sbp>160 Last administered on 11/26/16 14:35; Admin Dose 0.1 MG; Start 11/26/16 at 14:00 Heparin Sodium (Porcine) (Heparin (5000 Units/0.5 ml)) 5,000 unit BID SC Last administered on 11/27/16 10:00; Admin Dose 5,000 UNIT; Start 11/26/16 at 14:00 Clonidine (Catapres) 0.1 mg TID PO Last administered on 11/27/16 12:27; Admin Dose 0.1 MG; Start 11/26/16 at 21:00 Insulin Glargine (Lantus) 10 unit DAILY@20 SC Last administered on 11/26/16 22 :01; Admin Dose 10 UNIT; Start 11/26/16 at 21:30 XIANG WAGNER MD Nov 27, 2016 14:08
[2016-11-27] MEDS: FUROSEMIDE 40 MG TAB PO SCH (15:10)
[2016-11-27] MEDS ORDERED: FUROSEMIDE 40 MG INJ IV SCH (18:00)
[2016-11-27] MEDS: INSULIN GLARGINE [LANtus] 3 ML PEN SC SCH (20:21)
[2016-11-27] MEDS: TERAZOSIN 2 MG CAP PO SCH (20:25)
[2016-11-27] MEDS: ATORVASTATIN 20 MG TAB PO SCH (20:25)
[2016-11-28] VITALS (7 sets, daily range): BP systolic 134–160; BP diastolic 61–73; PULSE 60–76; RESP 17–20
[2016-11-28] MEDS: ACCU-CHEK XX SCH (02:00)
[2016-11-28] MEDS: INSULIN ASPART [NOVOLOG] 3 ML PEN SC SCH ×2 (08:00→11:50)
[2016-11-28] MEDS: FUROSEMIDE 40 MG TAB PO SCH (08:13)
[2016-11-28] MEDS: NIFEdipine (XL) 60 MG TAB PO SCH (08:13)
[2016-11-28] MEDS: METOPROLOL 50 MG TAB PO SCH (08:14)
[2016-11-28] MEDS: NA BICARBONATE 650 MG TAB PO SCH (08:14)
[2016-11-28] MEDS: ASPIRIN (EC) 81 MG TAB PO SCH (08:14)
[2016-11-28] MEDS: FOLIC ACID 1 MG TAB PO SCH (08:14)
[2016-11-28] MEDS: HEPARIN 5,000 UNIT/0.5 ML VIAL SC SCH (08:16)
[2016-11-28 09:01] LABS: BASOPHILS % 0.4 % (0.0-2.0); EOSINOPHILS # 0.4 10^3/ul (0.0-0.5); EOSINOPHILS % 8.5 % (0.0-7.0); HEMATOCRIT 25.3 % (42.0-52.0); LYMPHOCYTES # 0.8 10^3/ul (0.8-2.9); LYMPHOCYTES % 16.2 % (15.0-51.0); MEAN CORPUSCULAR HEMOGLOBIN 30.5 pg (29.0-33.0); MEAN CORPUSCULAR HGB CONC 31.6 g/dl (32.0-37.0); MEAN CORPUSCULAR VOLUME 96.6 fl (82.0-101.0); MEAN PLATELET VOLUME 11.4 fl (7.4-10.4); MONOCYTE # 0.4 10^3/ul (0.3-0.9); MONOCYTES % 8.1 % (0.0-11.0); NEUTROPHIL # 3.1 10^3/ul (1.6-7.5); NEUTROPHILS % 66.4 % (39.0-77.0); PLATELET COUNT 219 10^3/UL (140-415); RED BLOOD COUNT 2.62 10^6/ul (4.70-6.10); RED CELL DISTRIBUTION WIDTH 13.4 % (11.5-14.5); WHITE BLOOD COUNT 4.7 10^3/ul (4.8-10.8)
--- NOTE | 2016-11-28 09:22 | CONS ---
Date/Time of Note Date/Time of Note DATE: 11/28/16 TIME: 09:21 Consult Date/Type/Reason Admit Date/Time Nov 25, 2016 at 22:01 Initial Consult Date Subjective pt. with labs today refused to be started on hd Objective Vital Signs Date Time Temp Pulse Resp B/P Pulse Ox O2 Delivery O2 Flow Rate FiO2 11/28/16 08:16 76 11/28/16 07:34 98.7 17 160/73 94 11/26/16 01:05 Room Air Intake and Output 11/27/16 11/27/16 11/28/16 15:00 23:00 07:00 Intake Total 900 ml 300 ml Output Total 650 ml 600 ml Balance 250 ml -300 ml Results/Medications Result Diagram: 11/28/16 0844 11/27/16 0748 Results 24 hrs Laboratory Tests Test 11/27/16 12:21 11/27/16 17:21 11/27/16 20:17 11/28/16 08:11 Bedside Glucose 157 213 136 107 Test 11/28/16 08:44 White Blood Count 4.7 L Red Blood Count 2.62 L Hemoglobin 8.0 L Hematocrit 25.3 L Mean Corpuscular Volume 96.6 Mean Corpuscular Hemoglobin 30.5 Mean Corpuscular Hemoglobin Concent 31.6 L Red Cell Distribution Width 13.4 Platelet Count 219 Mean Platelet Volume 11.4 H Neutrophils % 66.4 Lymphocytes % 16.2 Monocytes % 8.1 Eosinophils % 8.5 H Basophils % 0.4 Nucleated Red Blood Cells % 0.0 Neutrophils # 3.1 Lymphocytes # 0.8 Monocytes # 0.4 Eosinophils # 0.4 Basophils # 0.0 Nucleated Red Blood Cells # 0.0 Medications Current Medications Ondansetron HCl (Zofran Inj) 4 mg Q6H PRN IV NAUSEA AND/OR VOMITING; Start at 00:30 Acetaminophen (Tylenol Tab) 650 mg Q4H PRN PO PAIN AND OR ELEVATED TEMP; Start 11/26/16 at 00:30 Hydralazine HCl (Apresoline) 10 mg Q6H PRN IV systolic BP >160 Last administered on 11/26/16t 18:31; Admin Dose 10 MG; Start 11/26/16 at 00:30 Diagnostic Test (Pha) (Accu-Chek) 1 ea 02 XX Last administered on 11/27/16 02: 54; Admin Dose 1 EA; Start 11/26/16 at 02:00 Miscellaneous Information 1 ea NOTE XX ; Start 11/26/16 at 00:30 Glucose (Glutose) 15 gm Q15M PRN PO DECREASED GLUCOSE; Start 11/26/16 at 00:30 Glucose (Glutose) 22.5 gm Q15M PRN PO DECREASED GLUCOSE; Start 11/26/16 at 00: 30 Dextrose (D50w Syringe) 25 ml Q15M PRN IV DECREASED GLUCOSE; Start 11/26/16 at 00:30 Dextrose (D50w Syringe) 50 ml Q15M PRN IV DECREASED GLUCOSE; Start 11/26/16 at 00:30 Glucagon (Glucagen) 1 mg Q15M PRN IM DECREASED GLUCOSE; Start 11/26/16 at 00:30 Glucose (Glutose) 15 gm Q15M PRN BUCCAL DECREASED GLUCOSE; Start 11/26/16 at 00 :30 Atorvastatin Calcium (Lipitor) 20 mg QHS PO Last administered on 11/27/16 20: 25; Admin Dose 20 MG; Start 11/26/16 at 21:00 Folic Acid (Folic Acid) 1 mg DAILY PO Last administered on 11/28/16 08:14; Admin Dose 1 MG; Start 11/26/16 at 09:00 Metoprolol Tartrate (Lopressor) 50 mg BID PO Last administered on 11/28/16 08: 14; Admin Dose 50 MG; Start 11/26/16 at 09:00 Nifedipine (Procardia Xl) 60 mg BID PO Last administered on 11/28/16 08:13; Admin Dose 60 MG; Start 11/26/16 at 09:00 Sodium Bicarbonate (Sodium Bicarbonate Tab) 325 mg BID PO Last administered on 11/28/16 08:14; Admin Dose 325 MG; Start 11/26/16 at 09:00 Terazosin HCl (Hytrin) 2 mg HS PO Last administered on 11/27/16 20:25; Admin Dose 2 MG; Start 11/26/16 at 21:00 Aspirin (Halfprin) 81 mg DAILY PO Last administered on 11/28/16 08:14; Admin Dose 81 MG; Start 11/26/16 at 09:00 Clonidine (Catapres) 0.1 mg Q6H PRN PO sbp>160 Last administered on 11/26/16 14:35; Admin Dose 0.1 MG; Start 11/26/16 at 14:00 Heparin Sodium (Porcine) (Heparin (5000 Units/0.5 ml)) 5,000 unit BID SC Last administered on 11/28/16 08:16; Admin Dose 5,000 UNIT; Start 11/26/16 at 14:00 Clonidine (Catapres) 0.1 mg TID PO Last administered on 11/28/16 08:14; Admin Dose 0.1 MG; Start 11/26/16 at 21:00 Insulin Glargine (Lantus) 10 unit DAILY@20 SC Last administered on 11/27/16 20 :21; Admin Dose 10 UNIT; Start 11/26/16 at 21:30 Furosemide (Lasix) 40 mg DAILY PO Last administered on 11/28/16 08:13; Admin Dose 40 MG; Start 11/27/16 at 14:16 Assessment/Plan Chief Complaint/Hosp Course 1. Nonoliguric acute kidney injury on top of chronic kidney disease (CKD), possible progression of CKD towards end-stage renal disease. The patient appears to have progression of his underlying chronic kidney disease, given his long history of diabetes, hypertension. The patient was offered hemodialysis but is refusing. As stated above, risks and benefits were explained to the patient. The patient understood and is still refusing dialysis. He wishes to follow up with his primary sprinkling system installer at [facility]. Would otherwise continue current treatment plan, supportive care, renally dose all medication. 2. Anemia. Monitor hemoglobin and hematocrit levels. Will give Epogen as needed. 3. Mineral bone disorder. Monitor calcium and phosphorus levels. 4. Hypertensive urgency in part due to increased intravascular volume. Continue current blood pressure regimen. We will discontinue IV fluids. 5. Hyponatremia. Continue to encourage free water intake. 6. Metabolic acidosis with respiratory compensation. Continue to monitor. 7. Diabetes. Continue Accu-Cheks and insulin sliding scale. 8. History of cerebrovascular accident. Continue medical management. Problems: KATIE KAPOOR MD Nov 28, 2016 09:22
[2016-11-28 09:35] LABS: CALCIUM 8.2 mg/dl (8.4-10.2); CREATININE 4.75 mg/dl (0.61-1.24); PHOSPHORUS 4.8 mg/dl (2.5-4.9); POTASSIUM 4.8 mmol/L (3.5-5.1)
[2016-11-28] MEDS ORDERED: FURO40TA4 PO (11:16)
[2016-11-28] MEDS ORDERED: HYDR-3671 PO (11:16)
[2016-11-28] MEDS ORDERED: ASPI-664 PO (11:16)
[2016-11-28] MEDS ORDERED: TERA2CAP3 PO (11:16)
[2016-11-28] MEDS ORDERED: FOLI-49 PO (11:16)
[2016-11-28] MEDS ORDERED: CLON0.1T14 PO (11:16)
--- NOTE | 2016-11-28 11:22 | PDOCDIS ---
Discharge Instructions DIAGNOSIS Discharge Diagnosis 1. Anasarca with peripheral edema and pleural effusion due to excessive fluid intake because of clonidine-induced dry mouth 2. Hypertension 3. Renal failure, acute on CKD 4. DM, 5. CVA per history CONDITION Patient Condition: Stable HOME CARE INSTRUCTIONS: Special Diet: carb controlled diet FOLLOW UP/APPOINTMENTS Follow-up Plan 1. Follow-up with manager of exhibitions and collections within a week 2. follow-up with your primary care physician for all of up lab draw: Basic metabolic panel RAYSHAWN HEARN Nov 28, 2016 11:22
--- NOTE | 2016-11-28 12:36 | DS ---
Date/Time of Note Date/Time of Note DATE: 11/28/16 TIME: 12:27 Discharge Summary Admission/Discharge Info Admit Date/Time Nov 25, 2016 at 22:01 Discharge Date/Time Discharge Diagnosis 1. Anasarca with peripheral edema and pleural effusion due to excessive fluid intake because of clonidine-induced dry mouth 2. Hypertension 3. Renal failure, acute on CKD 4. DM, 5. CVA per history Patient Condition: Stable Consults 1. Dr. Miguel A Dubois Hospital Course This is a 66-year-old male with history of cecum, diabetes, BPH, who came to [facility] due to reports of increased shortness of breath bilateral extremity swelling and testicular swelling. Laboratory results patient was seen to be with acute on chronic kidney disease. Patient was consulted by magazine journalist. Likely etiology of patient's swelling was secondary to renal insufficiency. Patient was placed on diuretic therapy. Despite optimal management and renally dosing medications she still noted with renal dysfunction. Patient was offered multiple times for dialysis by magazine journalist but patient refused multiple times and stated that he would follow-up with his outpatient magazine journalist at all of the hospital. During his course of stay he did improve. He was noted with less swelling bilateral lower extremities. She was otherwise optimized medically. He was resumed on antihypertensives for his hypertension and we did renally dose his medications for his renal insufficiency. He did have a history of diabetes but his A1c was noted at 5.[address] him on Accu-Cheks and insulin sliding scale for correction. He did have a history of CVA but no active issues were noted at this time. During his course of stay he did improve. He was instructed to follow-up with magazine journalist and primary care physician for further monitoring of his renal function and for further workup and lab testing. Patient was cleared by inpatient magazine journalist on the day of his discharge. The plan of care was discussed with the patient and patient did verbalize his understanding. On the day of discharge patient was in stable condition Discussed plan of care with Dr. Olivarez [facility] Active Scripts Hydralazine Hcl* (Hydralazine Hcl*) 25 Mg Tab, 25 MG PO BID, #60 TAB Prov:RAYSHAWN HEARN 11/28/16 Terazosin Hcl* (Terazosin Hcl*) 2 Mg Capsule, 2 MG PO HS for 30 Days, CAP Prov:RAYSHAWN HEARN 11/28/16 Folic Acid* (Folic Acid*) 1 Mg Tablet, 1 MG PO DAILY for 30 Days, #30 TAB Prov:RAYSHAWN HEARN 11/28/16 Furosemide* (Furosemide*) 40 Mg Tablet, 40 MG PO DAILY for 10 Days, #10 TAB Prov:RAYSHAWN HEARN 11/28/16 Clonidine Hcl* (Catapres*) 0.1 Mg Tablet, 0.1 MG PO TID for 30 Days, #90 Prov:RAYSHAWN HEARN 11/28/16 Aspirin* (Aspirin* EC) 81 Mg Tablet.dr, 81 MG PO DAILY for 30 Days, #30 Prov:RAYSHAWN HEARN 11/28/16 Reported Medications Nifedipine* (Nifedipine ER*) 60 Mg Tablet.sa, 60 MG PO BID, TAB.SA 11/25/16 Atorvastatin Calcium* (Atorvastatin Calcium*) 20 Mg Tablet, 20 MG PO QHS, #30 TAB 11/25/16 Sodium Bicarbonate (Antacid) 650 Mg Tablet, 325 MG PO BID, TAB 11/25/16 Metoprolol Tartrate* (Lopressor*) 50 Mg Tab, 50 MG PO BID, #60 TAB 11/25/16 Discontinued Reported Medications Folic Acid* (Folic Acid*) 1 Mg Tablet, 1 MG PO DAILY, TAB 11/25/16 Terazosin Hcl* (Terazosin Hcl*) 2 Mg Capsule, 2 MG PO HS, CAP 11/25/16 Clonidine Hcl* (Clonidine Hcl*) 0.1 Mg Tab, 0.1 MG PO BID, TAB 11/25/16 Discontinued Scripts Tramadol HCl (Tramadol HCl) 50 Mg Tablet, 50 MG PO Q4 Y for PAIN, #15 TAB Prov:SEVERO STEWART PA-C 02/12/16 Naproxen* (Naprosyn*) 500 Mg Tablet, 500 MG PO BID Y for PAIN AND/OR INFLAMMATION, #30 TAB Prov:SEVERO STEWART PA-C 02/12/16 Follow-up Plan 1. Follow-up with magazine journalist within a week 2. follow-up with your primary care physician for all of up lab draw: Basic metabolic panel Primary Care Provider Care Physician No Primary Time spent on discharge: > 30 minutes Pending Labs Laboratory Tests Test 11/27/16 17:21 11/27/16 20:17 11/28/16 08:11 11/28/16 08:44 Bedside Glucose 213mg/dL (70-220) 136mg/dL (70-220) 107mg/dL (70-220) White Blood Count 4.710^3/ul (4.8-10.8) Red Blood Count 2.6210^6/ul (4.70-6.10) Hemoglobin 8.0g/dl (14.0-18.0) Hematocrit 25.3% (42.0-52.0) Mean Corpuscular Volume 96.6fl (82.0-101.0) Mean Corpuscular Hemoglobin 30.5pg (29.0-33.0) Mean Corpuscular Hemoglobin Concent 31.6g/dl (32.0-37.0) Red Cell Distribution Width 13.4% (11.5-14.5) Platelet Count 26728^3/UL (140-415) Mean Platelet Volume 11.4fl (7.4-10.4) Neutrophils % 66.4% (39.0-77.0) Lymphocytes % 16.2% (15.0-51.0) Monocytes % 8.1% (0.0-11.0) Eosinophils % 8.5% (0.0-7.0) Basophils % 0.4% (0.0-2.0) Nucleated Red Blood Cells % 0.0/100WBC (0.0-0.0) Neutrophils # 3.110^3/ul (1.6-7.5) Lymphocytes # 0.810^3/ul (0.8-2.9) Monocytes # 0.410^3/ul (0.3-0.9) Eosinophils # 0.410^3/ul (0.0-0.5) Basophils # 0.010^3/ul (0.0-0.1) Nucleated Red Blood Cells # 0.010^3/ul (0.0-0.0) Sodium Level 145mmol/L (135-144) Potassium Level 4.8mmol/L (3.5-5.1) Chloride Level 116mmol/L (97-110) Carbon Dioxide Level 20mmol/L (21-31) Anion Gap 14 (8-16) Blood Urea Nitrogen 53mg/dl (7-20) Creatinine 4.75mg/dl (0.61-1.24) Glucose Level 107mg/dl (70-220) Calcium Level 8.2mg/dl (8.4-10.2) Phosphorus Level 4.8mg/dl (2.5-4.9) Magnesium Level 2.0mg/dl (1.7-2.5) Test 11/28/16 11:39 Bedside Glucose 164mg/dL (70-220) RAYSHAWN HEARN Nov 28, 2016 12:36
[2016-11-30 16:51] LABS: MICROALBUMIN 68.6 mg/dL
== END 2016-11-28 12:51 | disposition home or self-care (01) | DRG 683 ==
LOC: E/R 18:14 → MS4 22:01
PROVIDERS: ADMIT Internal Medicine; ATTEND Internal Medicine
DX: N17.0 Acute kidney failure with tubular necrosis (principal); I12.0 Hypertensive chronic kidney disease with stage 5 chronic kidney disease or end stage renal disease; E87.0 Hyperosmolality and hypernatremia; E87.2 Acidosis; J90 Pleural effusion, not elsewhere classified; E87.1 Hypo-osmolality and hyponatremia; N18.6 End stage renal disease; E87.5 Hyperkalemia; E11.22 Type 2 diabetes mellitus with diabetic chronic kidney disease; N40.0 Benign prostatic hyperplasia without lower urinary tract symptoms; I16.0 Hypertensive urgency; D64.9 Anemia, unspecified; R68.2 Dry mouth, unspecified; T46.5X5A Adverse effect of other antihypertensive drugs, initial encounter; Y92.230 Patient room in hospital as the place of occurrence of the external cause; R60.1 Generalized edema; R60.9 Edema, unspecified; Z79.4 Long term (current) use of insulin; Z87.891 Personal history of nicotine dependence; Z86.73 Personal history of transient ischemic attack (TIA), and cerebral infarction without residual deficits
CPT/HCPCS: 36415; 36600; 71010; 76775; 80048; 80053; 81001; 81003; 82043; 82550; 82553; 82803; 82962; 83036; 83735; 84100; 84155; 84300; 84484; 85025; 93005; 93306; 96374; J1940; J0360; J1644; J1815; J7030; P9047; Q4081

== ENCOUNTER 2018-11-16 18:18 | Emergency (ER) | payer MEDICARE, OTHER ==
[~2018-11-16] VITALS: Wt 55.0 kg
[~2018-11-16 18:18] MED LIST changes: +ASPI-817 PO; +ATOR20TA38 PO; +CLON0.1T14 PO; +FOLI-49 PO; +FURO40TA4 PO; +HYDR-3671 PO; +METO-429 PO; -NAPR-260 PO; +NIFE60TA18 PO; +SODI650T PO; +TERA2CAP3 PO; -TRAM50TA2 PO
[2018-11-16] MEDS ORDERED: ONDANSETRON 4 MG INJ IV STA (19:31)
[2018-11-16] MEDS ORDERED: ASPIRIN 81 MG TAB PO STA (19:31)
[2018-11-16] MEDS ORDERED: morphine 4 MG/ML VIAL IV STA (19:31)
[2018-11-16] MEDS ORDERED: SOD CHLORIDE 0.9% 100 ML ONE (19:47)
[2018-11-16] MEDS ORDERED: IODIXANOL LOCM 100 ML BTL ONE (19:47)
[2018-11-16] MEDS ORDERED: hydrALAzine 20 MG INJ IV ONE (20:00)
[2018-11-16] MEDS ORDERED: BISACODYL (EC) 5 MG TAB PO PRN (22:00)
[2018-11-16] MEDS ORDERED: ACETAMINOPHEN 325 MG TAB PO PRN ×2 (22:00)
[2018-11-16] MEDS ORDERED: NITROGLYCERIN (SL) 0.4 MG TAB SL PRN (22:00)
[2018-11-16] MEDS ORDERED: NACL 0.9% 3 ML SYG IV SCH (22:00)
[2018-11-16] MEDS ORDERED: HEPARIN 5,000 UNIT/1 ML VIAL SC SCH (22:00)
[2018-11-16] MEDS ORDERED: morphine 2 MG INJ IV PRN (22:00)
[2018-11-16] MEDS ORDERED: ONDANSETRON 4 MG INJ IV PRN ×2 (22:00)
[2018-11-16] MEDS ORDERED: DOCUSATE SODIUM 100 MG CAP PO PRN (22:00)
[2018-11-16] MEDS ORDERED: hydrALAzine 20 MG INJ IV PRN ×2 (22:00)
[2018-11-16 22:05] VITALS: BP 134/61; PULSE 90; RESP 19
== END 2018-11-16 22:20 | disposition left against medical advice (07) ==
LOC: E/R 18:18
DX: I16.0 Hypertensive urgency (principal); I12.0 Hypertensive chronic kidney disease with stage 5 chronic kidney disease or end stage renal disease; N18.6 End stage renal disease; Z79.82 Long term (current) use of aspirin; Z86.73 Personal history of transient ischemic attack (TIA), and cerebral infarction without residual deficits; Z87.891 Personal history of nicotine dependence; Z99.2 Dependence on renal dialysis
CPT/HCPCS: 36415; 71045; 71275; 75635; 80048; 84484; 85025; 85610; 85730; 93005; 99285; J0360; Q9967